=== PATIENT | female | born 1980 | race Caucasian/White ===

== ENCOUNTER 2019-05-23 21:33 | Emergency (ER) | payer SELFPAY ==
[~2019-05-23] VITALS: Ht 157.5 cm; Wt 104.2 kg
[~2019-05-23 21:33] MED LIST: BISM262O23 PO; IBUP-1542 PO; OFLO5DRO7 RIGHT EAR
[2019-05-23 21:35] VITALS: Ht 157.5 cm; Wt 104.2 kg
[2019-05-23] MEDS ORDERED: IBUPROFEN 600 MG TAB PO ONE (22:30)
[2019-05-23] MEDS ORDERED: DEXAMETHASONE 4 MG TAB PO ONE (22:30)
[2019-05-23] MEDS ORDERED: CIPROFLOXACIN HCL OTIC DROP 0.25 ML RIGHT EAR SCH (22:30)
--- NOTE | 2019-05-23 22:36 | ERD ---
ER Documentation Chief Complaint Chief Complaint BILATERAL EAR PAIN X1WK WITH ABD PAIN WITH DIARRHEA XTODAY; BACK FR [facility] 38-year-old female presents with right ear pain for last week. She is also had epigastric pain and diarrhea for the last day. She returned from [facility] yesterday. She denies any fevers, vomiting, cough, shortness of breath or chest pain. She denies any bleeding or discharge. Denies mucus or blood in the di arrhea. ROS All systems reviewed and are negative except as per history of present illness. Medications Home Meds Active Scripts Bismuth Subsalicylate* (Pepto-Bismol*) 262 Mg/15 Ml Oral.susp, 15 ML PO Q3H PRN for DIARRHEA for 5 Days, ML Prov:NANCY ELLIS MD 05/23/19 Ibuprofen* (Motrin*) 600 Mg Tab, 600 MG PO Q6, #15 TAB Prov:NANCY ELLIS MD 05/23/19 Ofloxacin Otic (Ofloxacin Otic) 5 Ml Drops, 5 DROP RIGHT EAR BID for 10 Days, #1 BOTTLE Prov:NANCY ELLIS MD 05/23/19 Allergies Allergies: Coded Allergies: No Known Allergy (Unverified , 05/23/19) PMhx/Soc History of Surgery: No Anesthesia Reaction: No Hx Neurological Disorder: No Hx Respiratory Disorders: No Hx Cardiac Disorders: No Hx Psychiatric Problems: No Hx Miscellaneous Medical Probl: No Hx Alcohol Use: No Hx Substance Use: No Hx Tobacco Use: No Smoking Status: Never smoker FmHx Family History: No diabetes, No coronary disease, No other Physical Exam Vitals Vital Signs Date Temp Pulse Resp B/P (MAP) Pulse Ox O2 O2 Flow FiO2 Time Delivery Rate 05/23/19 99.9 93 19 141/68 99 21:35 (92) Physical Exam Const: No acute distress Head: Atraumatic Eyes: Normal Conjunctiva ENT: Normal External Ears, Nose and Mouth. Pain with passive range of motion of the right extremity. Swelling of the external auditory canal with redness and slight discharge. TM appears normal. Tender infra-auricular lymph nodes. No mastoid tenderness. Neck: Full range of motion. No meningismus. Resp: Clear to auscultation bilaterally Cardio: Regular rate and rhythm, no murmurs Abd: Soft, non tender, non distended. Normal bowel sounds Skin: No petechiae or rashes Back: No midline or flank tenderness Ext: No cyanosis, or edema Neur: Awake and alert Psych: Normal Mood and Affect Results 24 hrs Current Medications Medications Dose Sig/Kenzie Start Time Status Last (Trade) Ordered Route PRN Stop Time Admin Dose Reason Admin 4 drop BID RIGHT 05/23/19 05/23/19 Ciprofloxacin EAR 22:30 22:31 HCl (Ciprofloxaci n HCl Otic) Ibuprofen 600 mg ONCE ONCE 05/23/19 DC 05/23/19 (Motrin) PO 22:30 05/23/19 22:31 22:31 12 mg ONCE ONCE 05/23/19 DC 05/23/19 Dexamethasone PO 22:30 05/23/19 22:31 (Decadron) 22:31 Procedures/MDM Patient presents with signs and symptoms of right otitis externa. She has no signs of mastoiditis. She has diarrhea for the last day as well, likely traveler's diarrhea. She has no signs of surgical abdomen, or tenderness to suggest appendicitis, additional concerning signs or symptoms. She will be treated with ofloxacin, ibuprofen, Pepto-Bismol, primary care follow-up and return precautions. The patient was stable with no new complaints during the ER course. Clinically, there is no current evidence to suggest meningitis, sepsis, acute abdomen, pneumonia, stroke, acute coronary syndrome, pulmonary embolism, aortic dissection or any other emergent condition appearing to require further evaluation or hospitalization. Patient counseled regarding my diagnostic impression and care plan. Prior to discharge all questions answered. Pt agrees with treatment plan and understands strict return precautions. Pt is instructed to follow up with primary care provider within 24-48 hours. Precautionary instructions provided including instructions to return to the ER if not improving or for any worsening or changing symptoms or concerns. Disclaimer: Inadvertent spelling and grammatical errors are likely due to EHR/dictation software use and do not reflect on the overall quality of patient care. Also, please note that the electronic time recorded on this note does not necessarily reflect the actual time of the patient encounter. The patient's blood pressure was elevated (>120/80) but appears stable without evidence of hypertension emergency or urgency. The patient was counseled about the risks of hypertension and urged to pursue outpatient monitoring and therapy within a week with their primary care physician. I discussed the findings with the patient. I advised the patient to follow-up with the primary physician in about 1-2 days, sooner if needed and return if any concern. Departure Diagnosis: Primary Impression: Diarrhea Diarrhea type: unspecified type Qualified Codes: R19.7 - Diarrhea, unspecified Additional Impression: Otitis externa Otitis externa type: unspecified type Chronicity: acute Laterality: ri t Qualified Codes: H60.501 - Unspecified acute noninfective otitis externa, right ear Condition: Stable Patient Instructions: Treating Diarrhea, External Ear Infection (Adult) Additional Instructions: Recheck for new or worsening symptoms with primary care doctor. NANCY ELLIS MD May 23, 2019 22:36
[2019-05-23 23:02] VITALS: BP 133/72; PULSE 68; RESP 16
== END 2019-05-23 23:03 | disposition home or self-care (01) ==
LOC: EDBD → MERGE 21:33 → FTE 21:33
DX: H60.501 Unspecified acute noninfective otitis externa, right ear (principal); R19.7 Diarrhea, unspecified
CPT/HCPCS: 99283